=== PATIENT | male | born 1950 | race Caucasian/White ===

== ENCOUNTER 2016-10-16 11:31 | Outpatient (CLI) | payer MEDICARE, OTHER, SELFPAY ==
[2016-10-16 11:54] LABS: #Eosinphils 0.2 thou/uL (0.0-0.7); #Lymphocytes 1.6 thou/uL (1.20-3.40); #Monocytes 0.6 thou/uL (0.11-0.59); #Neutrophils 3.6 thou/uL (1.40-6.50); %Basophils 0.8 % (0.0-1.0); %Eosinophils 2.7 % (0.0-10.0); %Lymphocytes 26.1 % (21.0-51.0); %Monocytes 10.6 % (0.0-10.0); %Neutrophils 59.9 % (42.0-75.0); Hemoglobin 11.5 g/dL (14.0-18.0); Mean Corpuscular HGB CONC 34.6 g/dL (32.0-36.0); Mean Corpuscular Hemoglobin 32.1 pg (27.0-31.0); Mean Corpuscular Volume 92.9 fl (80.0-94.0); Mean Platelet Volume 6.3 fL (7.4-10.4); Platelet Count 375 thou/uL (130-400); RBC Distribution Width 12.2 % (11.5-14.5); Red Blood Cell (RBC) Count 3.57 mill/uL (4.70-6.10); White Blood Cell (WBC) Count 5.9 thou/uL (4.8-10.8)
[2016-10-16 11:58] LABS: Hemoglobin A1c 5.3 % (4.0-6.0)
[2016-10-16 12:11] LABS: ALT (SGPT) Less than 6 U/L (0-55); AST (SGOT) 13 U/L (5-34); Albumin 4.1 g/dL (3.4-4.8); Alkaline Phosphatase 100 U/L (40-150); Anion Gap 12 mmol/L (10-20); BUN (Urea Nitrogen) 9 mg/dL (8.4-25.7); Bilirubin, Total 0.3 mg/dL (0.2-1.2); Calc. Creatinine Clearance 0 mL/min (70-130); Calcium 9.1 mg/dL (7.8-10.44); Carbon Dioxide 26 mmol/L (23-31); Cardiac Risk 1.8 (Less than 4.5); Chloride 94 mmol/L (98-107); Cholesterol 100 mg/dL (< 200 Desired); Estimated GFR-MDRD 88; Globulin 2.5 g/dL (2.4-3.5); Glucose 113 mg/dL (80-115); HDL Cholesterol 56 mg/dL (>60 Neg Risk); LDL Cholesterol, Calculated 38 mg/dL; Potassium 3.9 mmol/L (3.5-5.1); Protein, Total 6.6 g/dL (5.8-8.1); Sodium 128 mmol/L (136-145); Triglycerides 31 mg/dL (Less than 150)
== END 2016-10-16 11:32 ==
LOC: MADLABBHPM 11:31
PROVIDERS: ATTEND Family Medicine
DX: E87.1 Hypo-osmolality and hyponatremia (principal); N40.0 Benign prostatic hyperplasia without lower urinary tract symptoms; I10 Essential (primary) hypertension
CPT/HCPCS: 36415; 80053; 80061; 83036; 84443; 85025

== ENCOUNTER 2018-01-07 09:49 | Outpatient (CLI) | payer MEDICARE ==
[2018-01-07 11:05] LABS: #Basophils 0.1 thou/uL (0.0-0.2); #Eosinphils 0.1 thou/uL (0.0-0.7); #Lymphocytes 1.2 thou/uL (1.20-3.40); #Monocytes 0.7 thou/uL (0.11-0.59); #Neutrophils 4.4 thou/uL (1.40-6.50); %Basophils 1.3 % (0.0-1.0); %Eosinophils 0.9 % (0.0-10.0); %Lymphocytes 18.8 % (21.0-51.0); Mean Corpuscular HGB CONC 35.2 g/dL (32.0-36.0); Mean Corpuscular Hemoglobin 30.5 pg (27.0-31.0); Mean Corpuscular Volume 86.4 fl (80.0-94.0); Mean Platelet Volume 6.1 fL (7.4-10.4); Platelet Count 324 thou/uL (130-400); White Blood Cell (WBC) Count 6.5 thou/uL (4.8-10.8)
--- NOTE | 2018-01-07 11:46 | RAD ---
2 VIEWS CHEST; Date: 01/07/18 HISTORY: Hyponatremia. COMPARISON: None. FINDINGS: Slight elongation of the aorta. Normal cardiac silhouette. Pulmonary vessels and hilum are normal. Co stophrenic angles are clear. Hyperinflation with possible infiltrate in the left lower lobe. No pneum othorax or osseous abnormalities. IMPRESSION: Left lower lobe infiltrate. Continued surveillance. POS: [facility]
[2018-01-07 17:32] LABS: Iron 32 ug/dL (65-175); Iron Binding Capacity, Total 301 mcg/dL (261-462)
[2018-01-07 17:36] LABS: Osmolality, Serum 248 mOsm/kg (280-295)
[2018-01-07 17:52] LABS: Ferritin 180.53 ng/mL (22-322)
== END 2018-01-07 09:50 | disposition home or self-care (01) ==
LOC: MADLABBHPM 09:49
PROVIDERS: ATTEND Family Medicine
DX: R79.89 Other specified abnormal findings of blood chemistry (principal); E87.1 Hypo-osmolality and hyponatremia; D64.9 Anemia, unspecified; R91.8 Other nonspecific abnormal finding of lung field
CPT/HCPCS: 36415; 71046; 82024; 82533; 82607; 82728; 83540; 83550; 83930; 83935; 85025

== ENCOUNTER 2019-03-18 10:10 | Outpatient (CLI) | payer MEDICARE ==
--- NOTE | 2019-03-18 10:38 | RAD ---
EXAM: 3 views of the right shoulder HISTORY: Shoulder pain COMPARISON: None FINDINGS: There is no evidence of acute fracture or dislocation. Severe glenohumeral degenerative jose nges are present. No soft tissue swelling is seen. The visualized thorax is unremarkable. IMPRESSION: Severe right shoulder osteoarthritis
--- NOTE | 2019-03-18 10:40 | RAD ---
EXAM: 2 views of the left hip HISTORY: Left hip pain COMPARISON: 11/29/2011 FINDINGS: 2 views of the left hip shows no evidence of acute fracture or dislocation. The patient is status post left hip arthroplasty. Acetabular portion of the prosthesis is too vertically oriented. No lucency is seen surrounding the femoral portion of the prosthesis. IMPRESSION: Abnormal orientation of acetabular component of the left hip prosthesis.
[2019-03-18 11:19] LABS: ALT (SGPT) 8 U/L (8-55); AST (SGOT) 13 U/L (5-34); Albumin 4.3 g/dL (3.4-4.8); Alkaline Phosphatase 101 U/L (40-150); Anion Gap 14 mmol/L (10-20); BUN (Urea Nitrogen) 17 mg/dL (8.4-25.7); Bilirubin, Total 0.4 mg/dL (0.2-1.2); Calc. Creatinine Clearance 0 mL/min (70-130); Calcium 9.4 mg/dL (7.8-10.44); Carbon Dioxide 27 mmol/L (23-31); Chloride 91 mmol/L (98-107); Estimated GFR-MDRD 73; Globulin 2.8 g/dL (2.4-3.5); Glucose 88 mg/dL (80-115); Potassium 4.6 mmol/L (3.5-5.1); Protein, Total 7.1 g/dL (5.8-8.1); Sodium 127 mmol/L (136-145)
== END 2019-03-18 10:11 | disposition home or self-care (01) ==
LOC: MADLABBHPM 10:10
PROVIDERS: ATTEND Family Medicine
DX: M25.552 Pain in left hip (principal); M25.511 Pain in right shoulder; I10 Essential (primary) hypertension; E87.1 Hypo-osmolality and hyponatremia; Z96.662 Presence of left artificial ankle joint; M19.011 Primary osteoarthritis, right shoulder
CPT/HCPCS: 36415; 80053

== ENCOUNTER 2019-09-15 15:30 | Inpatient (IN) | payer MEDICARE ==
[2019-09-15] MEDS ORDERED: Acetaminophen 325 MG TAB PO PRN (17:11)
[2019-09-15] MEDS ORDERED: HYDROcodone/Acetaminophen 5/325 mg Tablet PO PRN (17:16)
[2019-09-15] MEDS: Famotidine 20 MG TAB PO SCH (21:03)
[2019-09-15] MEDS: Aspirin 81 mg Enteric Coated Tablet PO SCH (21:03)
[2019-09-15] MEDS: HYDROcodone/Acetaminophen 5/325 mg Tablet PO PRN (21:03)
--- NOTE | 2019-09-16 02:52 | HP ---
PRIMARY CARE PHYSICIAN/ADMITTING PHYSICIAN: Dr. Tip Bauman. REASON FOR ADMISSION: For skilled rehabilitation at [facility] Bed status post septic arthritis, status post failed total hip arthroplasty and revision. HISTORY OF PRESENT ILLNESS: Mr. Kevyn Fritz is a very pleasant 69-year-old male with a history of chronic smoking and alcohol abuse in the past and left hip replacement many years ago. The patient developed worsening pain and was diagnosed with loosening and failure of the left hip arthroplasty. Dr. Lomeli admitted the patient for a revision which was done on September 10, 2019, and there was gross purulence discharge within the capsule under pressure and cultures were submitted. There was full capsulectomy, synovectomy, and the femoral head was removed. The acetabular cup was removed. The patient was evaluated by Infectious Disease specialist, Dr. Schuster, due to septic arthritis and he recommended the patient to be started on IV Rocephin and vancomycin pending cultures. Patient's cultures were negative and per ID specialist, Dr. Schuster, recommended the patient be placed on IV Rocephin for 6 weeks and then transitioned to doxycycline thereafter. During hospitalizations, patient was noted to have hyponatremia, which was chronic for him and his discharge sodium was 126, admission sodium was 123. He was recommended to be on 1200ml fluid restriction and suspected this to be due to SIADH. Due to septic arthritis and physical deconditioning, the decision was made to transfer the patient to [facility] for skilled rehabilitation prior to returning to his home as he lives by himself. Upon evaluation of the patient today, he was very happy to be in facility. He had his sister, brother, and friend visiting. He was excited to start physical therapy and be discharged home within next a week or two. The patient states [place] and lidocaine patch used for pain control was adequate. He denies any chest pain, nausea, or vomiting. He states he has not had any bowel movement since after surgery, but he is passing gas. PAST MEDICAL HISTORY: Hyponatremia, hypertension, skin cancer of the lip, alcohol dependency syndrome, SIADH, and left hip replacement. ALLERGIES: NONE. FAMILY HISTORY: Noncontributory. SOCIAL HISTORY: Patient lives in [place], current smoker. Quit drinking alcohol about 2 months prior to admission. CURRENT MEDICATIONS: Aspirin 81 mg b.i.d., Rocephin 2 g daily, lidocaine patch 5%, lisinopril 10 mg daily, [place] 5/325 one tab for mild pain and 2 tabs for moderate to severe pain. REVIEW OF SYSTEMS: All systems reviewed and found to be negative except for the pertinent mentioned in H and P. PHYSICAL EXAMINATION: VITAL SIGNS: Temperature 98.1, pulse 67, respirations 16, O2 saturation 100% on room air, blood pressure 113/70. GENERAL: The patient is alert, awake, oriented, sitting up in bed, in no apparent distress. CVS: S1 and S2 heard, regular. RESPIRATIONS: Clear to auscultation bilaterally. HEENT: Eyes, no scleral icterus. No conjunctival pallor. ENT: Moist oral mucous membranes. No oropharyngeal erythema, lesions, or exudate. NECK: Supple, nontender. Trachea is midline. No JVD. NEUROLOGICAL: Cranial nerves 2 through 12 intact. MUSCULOSKELETAL: Left lateral hip with healing surgical incision. Dressing intact. No drainage noted. SKIN: No rashes. PSYCHIATRIC: Normal mood and affect. The patient is oriented to person, place , and time. ASSESSMENT: 1. Septic arthritis. 2. Status post failed left total hip arthroplasty, status post revision. 3. Acute anemia. 4. Hyponatremia, chronic. 5. Hypertension. 6. Coronary artery disease. 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 We will admit the patient to the swing bed. We will consult Physical Therapy to help with gait strengthening and ambulation. We will consult Occupational Therapy to help with activities of daily living. We will place the patient on aspirin b.i.d. for DVT prophylaxis. We will place the patient on Protonix for GI prophylaxis. We will hold hydrochlorothiazide and place patient on lisinopril 10 mg daily for blood pressure control. We will place the patient on a 1200 fluid restriction due to hyponatremia. We will place patient on stool softeners for his constipation. We will continue IV antibiotic with Rocephin x6 weeks per ID specialist, Dr. Schuster, and transition to doxycycline afterwards. The patient to follow up with Dr. Lomeli as discussed and follow up with ID specialist once IV antibiotic is completed. ESTIMATED LENGTH OF STAY: 2 to 6 weeks. CODE STATUS: The patient is full code. Job ID: [id number] [facility]
[2019-09-16] MEDS: Aspirin 81 mg Enteric Coated Tablet PO SCH ×2 (08:09→20:38)
[2019-09-16] MEDS: Lidocaine 5% Patch TD SCH (08:09)
[2019-09-16] MEDS: HYDROcodone/Acetaminophen 5/325 mg Tablet PO PRN ×3 (08:10→19:26)
[2019-09-16] MEDS: Famotidine 20 MG TAB PO SCH ×2 (08:10→20:38)
[2019-09-16] MEDS: Lisinopril 10 MG TAB PO SCH (08:12)
[2019-09-16] MEDS ORDERED: cefTRIAXone\\ROCEPHIN 2 GM VIAL IVPB SCH (16:00)
[2019-09-16] MEDS: cefTRIAXone\\ROCEPHIN 2 GM in Sodium Chloride 0.9% 100 ML IVPB SCH (16:11)
[2019-09-16] MEDS: Lidocaine Patch Removal 1 EACH TOP SCH (20:39)
[2019-09-17] MEDS ORDERED: HYDROcodone/Acetaminophen 5/325 mg Tablet PO PRN (02:15)
[2019-09-17] MEDS: HYDROcodone/Acetaminophen 5/325 mg Tablet PO PRN ×4 (03:30→17:36)
[2019-09-17] MEDS: Lisinopril 10 MG TAB PO SCH (08:22)
[2019-09-17] MEDS: Aspirin 81 mg Enteric Coated Tablet PO SCH ×2 (08:22→20:52)
[2019-09-17] MEDS: Famotidine 20 MG TAB PO SCH ×2 (08:22→20:53)
[2019-09-17] MEDS: Lidocaine 5% Patch TD SCH (08:23)
[2019-09-17] MEDS: cefTRIAXone\\ROCEPHIN 2 GM in Sodium Chloride 0.9% 100 ML IVPB SCH (16:53)
[2019-09-17] MEDS: Lidocaine Patch Removal 1 EACH TOP SCH (20:53)
[2019-09-18] MEDS: HYDROcodone/Acetaminophen 5/325 mg Tablet PO PRN ×5 (00:49→20:52)
[2019-09-18] MEDS: Aspirin 81 mg Enteric Coated Tablet PO SCH ×2 (08:59→20:52)
[2019-09-18] MEDS: Lisinopril 10 MG TAB PO SCH (08:59)
[2019-09-18] MEDS: Lidocaine 5% Patch TD SCH (09:00)
[2019-09-18] MEDS: Famotidine 20 MG TAB PO SCH ×2 (09:00→20:52)
[2019-09-18 13:42] LABS: Anion Gap 15 mmol/L (10-20); BUN (Urea Nitrogen) 20 mg/dL (8.4-25.7); Calc. Creatinine Clearance 82 mL/min (70-130); Calcium 8.9 mg/dL (7.8-10.44); Carbon Dioxide 24 mmol/L (23-31); Chloride 95 mmol/L (98-107); Estimated GFR-MDRD 90; Glucose 99 mg/dL (80-115); Potassium 4.6 mmol/L (3.5-5.1); Sodium 129 mmol/L (136-145)
[2019-09-18] MEDS: cefTRIAXone\\ROCEPHIN 2 GM in Sodium Chloride 0.9% 100 ML IVPB SCH (15:45)
[2019-09-18] MEDS: Lidocaine Patch Removal 1 EACH TOP SCH (20:54)
[2019-09-19] MEDS: HYDROcodone/Acetaminophen 5/325 mg Tablet PO PRN ×5 (03:47→23:11)
[2019-09-19] MEDS: Lidocaine 5% Patch TD SCH (09:07)
[2019-09-19] MEDS: Famotidine 20 MG TAB PO SCH ×2 (09:07→20:15)
[2019-09-19] MEDS: Aspirin 81 mg Enteric Coated Tablet PO SCH ×2 (09:07→20:14)
[2019-09-19] MEDS: Lisinopril 10 MG TAB PO SCH (09:07)
[2019-09-19] MEDS: cefTRIAXone\\ROCEPHIN 2 GM in Sodium Chloride 0.9% 100 ML IVPB SCH (16:03)
[2019-09-19] MEDS: Lidocaine Patch Removal 1 EACH TOP SCH (20:17)
[2019-09-20] MEDS: HYDROcodone/Acetaminophen 5/325 mg Tablet PO PRN ×4 (03:58→19:19)
[2019-09-20] MEDS: Lidocaine 5% Patch TD SCH (09:36)
[2019-09-20] MEDS: Aspirin 81 mg Enteric Coated Tablet PO SCH ×2 (09:37→20:52)
[2019-09-20] MEDS: Lisinopril 10 MG TAB PO SCH (09:37)
[2019-09-20] MEDS: Famotidine 20 MG TAB PO SCH ×2 (09:37→20:52)
[2019-09-20] MEDS: Ondansetron ODT 4 MG TAB PO PRN (13:30)
[2019-09-20] MEDS: cefTRIAXone\\ROCEPHIN 2 GM in Sodium Chloride 0.9% 100 ML IVPB SCH (16:00)
[2019-09-20] MEDS: Lidocaine Patch Removal 1 EACH TOP SCH (20:53)
[2019-09-21] MEDS ORDERED: HYDROcodone/Acetaminophen 5/325 mg Tablet ONE (01:40)
[2019-09-21] MEDS: HYDROcodone/Acetaminophen 5/325 mg Tablet PO PRN ×4 (01:45→20:37)
[2019-09-21] MEDS: Aspirin 81 mg Enteric Coated Tablet PO SCH ×2 (08:20→20:37)
[2019-09-21] MEDS: Lisinopril 10 MG TAB PO SCH (08:20)
[2019-09-21] MEDS: Famotidine 20 MG TAB PO SCH ×2 (08:20→20:37)
[2019-09-21] MEDS: Lidocaine 5% Patch TD SCH (08:20)
[2019-09-21] MEDS: cefTRIAXone\\ROCEPHIN 2 GM in Sodium Chloride 0.9% 100 ML IVPB SCH (16:25)
[2019-09-21] MEDS: Lidocaine Patch Removal 1 EACH TOP SCH (20:37)
[2019-09-22] MEDS: HYDROcodone/Acetaminophen 5/325 mg Tablet PO PRN ×2 (03:22→08:50)
[2019-09-22] MEDS: Aspirin 81 mg Enteric Coated Tablet PO SCH ×2 (08:45→21:08)
[2019-09-22] MEDS: Lidocaine 5% Patch TD SCH (08:45)
[2019-09-22] MEDS: Famotidine 20 MG TAB PO SCH ×2 (08:45→21:08)
[2019-09-22] MEDS: Ondansetron ODT 4 MG TAB PO PRN (08:50)
[2019-09-22] MEDS: Senokot S 8.6-50 MG TAB PO PRN ×2 (08:50→22:02)
[2019-09-22] MEDS: Lisinopril 10 MG TAB PO SCH (08:50)
[2019-09-22] MEDS: cefTRIAXone\\ROCEPHIN 2 GM in Sodium Chloride 0.9% 100 ML IVPB SCH (16:30)
[2019-09-22] MEDS ORDERED: Bisacodyl 10 MG SUPP PR PRN (16:43)
[2019-09-22] MEDS: Lidocaine Patch Removal 1 EACH TOP SCH (21:09)
[2019-09-23] MEDS: Senokot S 8.6-50 MG TAB PO PRN (08:56)
[2019-09-23] MEDS: Famotidine 20 MG TAB PO SCH ×2 (08:57→20:46)
[2019-09-23] MEDS: Lidocaine 5% Patch TD SCH (08:57)
[2019-09-23] MEDS: Aspirin 81 mg Enteric Coated Tablet PO SCH ×2 (08:57→20:46)
[2019-09-23] MEDS: Lisinopril 10 MG TAB PO SCH (08:57)
[2019-09-23] MEDS: cefTRIAXone\\ROCEPHIN 2 GM in Sodium Chloride 0.9% 100 ML IVPB SCH (16:36)
[2019-09-23] MEDS: Lidocaine Patch Removal 1 EACH TOP SCH (20:46)
[2019-09-24] MEDS: Lisinopril 10 MG TAB PO SCH (08:58)
[2019-09-24] MEDS: Aspirin 81 mg Enteric Coated Tablet PO SCH ×2 (08:58→21:09)
[2019-09-24] MEDS: Lidocaine 5% Patch TD SCH (08:58)
[2019-09-24] MEDS: Famotidine 20 MG TAB PO SCH ×2 (08:59→21:09)
[2019-09-24] MEDS: cefTRIAXone\\ROCEPHIN 2 GM in Sodium Chloride 0.9% 100 ML IVPB SCH (16:50)
[2019-09-24] MEDS: Senokot S 8.6-50 MG TAB PO PRN (21:09)
[2019-09-24] MEDS: Lidocaine Patch Removal 1 EACH TOP SCH (21:12)
[2019-09-25 05:34] LABS: #Basophils 0.1 thou/uL (0.0-0.2); #Eosinphils 0.2 thou/uL (0.0-0.7); #Neutrophils 5.9 thou/uL (1.40-6.50); %Eosinophils 2.2 % (0.0-10.0); %Lymphocytes 21.6 % (21.0-51.0); %Monocytes 10.6 % (0.0-10.0); %Neutrophils 64.6 % (42.0-75.0); Hemoglobin 10.1 g/dL (14.0-18.0); Mean Corpuscular HGB CONC 32.8 g/dL (32.0-36.0); Mean Corpuscular Hemoglobin 29.6 pg (27.0-31.0); Mean Corpuscular Volume 90.3 fL (78.0-98.0); Mean Platelet Volume 6.2 fL (7.4-10.4); Platelet Count 571 thou/uL (130-400); RBC Distribution Width 12.5 % (11.5-14.5); Red Blood Cell (RBC) Count 3.41 mill/uL (4.70-6.10); White Blood Cell (WBC) Count 9.2 thou/uL (4.8-10.8)
[2019-09-25 05:52] LABS: Anion Gap 13 mmol/L (10-20); BUN (Urea Nitrogen) 18 mg/dL (8.4-25.7); Calc. Creatinine Clearance 88 mL/min (70-130); Carbon Dioxide 25 mmol/L (23-31); Chloride 96 mmol/L (98-107); Estimated GFR-MDRD Greater than 90; Glucose 90 mg/dL (80-115); Potassium 4.3 mmol/L (3.5-5.1); Sodium 130 mmol/L (136-145)
[2019-09-25] MEDS: Famotidine 20 MG TAB PO SCH ×2 (09:25→20:04)
[2019-09-25] MEDS: Lidocaine 5% Patch TD SCH (09:25)
[2019-09-25] MEDS: Aspirin 81 mg Enteric Coated Tablet PO SCH ×2 (09:25→20:04)
[2019-09-25] MEDS: Lisinopril 10 MG TAB PO SCH (09:25)
[2019-09-25] MEDS: cefTRIAXone\\ROCEPHIN 2 GM in Sodium Chloride 0.9% 100 ML IVPB SCH (16:33)
[2019-09-25] MEDS: Lidocaine Patch Removal 1 EACH TOP SCH (20:06)
[2019-09-25] MEDS: HYDROcodone/Acetaminophen 5/325 mg Tablet PO PRN (22:20)
[2019-09-26] MEDS: Lisinopril 10 MG TAB PO SCH (08:40)
[2019-09-26] MEDS: Aspirin 81 mg Enteric Coated Tablet PO SCH ×2 (08:41→21:02)
[2019-09-26] MEDS: Lidocaine 5% Patch TD SCH (08:41)
[2019-09-26] MEDS: Famotidine 20 MG TAB PO SCH ×2 (08:43→21:02)
[2019-09-26] MEDS: cefTRIAXone\\ROCEPHIN 2 GM in Sodium Chloride 0.9% 100 ML IVPB SCH (16:50)
[2019-09-26] MEDS: Lidocaine Patch Removal 1 EACH TOP SCH (21:02)
[2019-09-27] MEDS: Lidocaine 5% Patch TD SCH (08:20)
[2019-09-27] MEDS: Famotidine 20 MG TAB PO SCH ×2 (08:20→21:26)
[2019-09-27] MEDS: Lisinopril 10 MG TAB PO SCH (08:20)
[2019-09-27] MEDS: Aspirin 81 mg Enteric Coated Tablet PO SCH ×2 (08:20→21:26)
[2019-09-27] MEDS: cefTRIAXone\\ROCEPHIN 2 GM in Sodium Chloride 0.9% 100 ML IVPB SCH (16:40)
[2019-09-27] MEDS: Lidocaine Patch Removal 1 EACH TOP SCH (21:27)
[2019-09-27] MEDS: HYDROcodone/Acetaminophen 5/325 mg Tablet PO PRN (21:34)
[2019-09-28] MEDS: Aspirin 81 mg Enteric Coated Tablet PO SCH ×2 (10:33→20:07)
[2019-09-28] MEDS: Lisinopril 10 MG TAB PO SCH (10:33)
[2019-09-28] MEDS: Famotidine 20 MG TAB PO SCH ×2 (10:33→20:07)
[2019-09-28] MEDS: Lidocaine 5% Patch TD SCH (10:33)
[2019-09-28] MEDS: cefTRIAXone\\ROCEPHIN 2 GM in Sodium Chloride 0.9% 100 ML IVPB SCH (16:03)
[2019-09-28] MEDS: HYDROcodone/Acetaminophen 5/325 mg Tablet PO PRN (20:07)
[2019-09-28] MEDS: Lidocaine Patch Removal 1 EACH TOP SCH (20:42)
[2019-09-29] MEDS: Aspirin 81 mg Enteric Coated Tablet PO SCH ×2 (08:35→21:32)
[2019-09-29] MEDS: Famotidine 20 MG TAB PO SCH ×2 (08:35→21:32)
[2019-09-29] MEDS: Lidocaine 5% Patch TD SCH (08:35)
[2019-09-29] MEDS: Lisinopril 10 MG TAB PO SCH (08:35)
[2019-09-29] MEDS: cefTRIAXone\\ROCEPHIN 2 GM in Sodium Chloride 0.9% 100 ML IVPB SCH (16:26)
[2019-09-29] MEDS: HYDROcodone/Acetaminophen 5/325 mg Tablet PO PRN (21:32)
[2019-09-29] MEDS: Lidocaine Patch Removal 1 EACH TOP SCH (21:34)
[2019-09-30 06:54] VITALS: BP 114/57; TEMP 97.8
[2019-09-30] MEDS: Famotidine 20 MG TAB PO SCH (08:04)
[2019-09-30] MEDS: Lisinopril 10 MG TAB PO SCH (08:04)
[2019-09-30] MEDS: Aspirin 81 mg Enteric Coated Tablet PO SCH (08:04)
[2019-09-30] MEDS: Lidocaine 5% Patch TD SCH (08:05)
[2019-09-30 12:31] LABS: #Basophils 0.1 thou/uL (0.0-0.2); #Eosinphils 0.2 thou/uL (0.0-0.7); #Lymphocytes 1.9 thou/uL (1.20-3.40); #Monocytes 0.7 thou/uL (0.11-0.59); #Neutrophils 6.5 thou/uL (1.40-6.50); %Basophils 0.8 % (0.0-1.0); %Eosinophils 1.7 % (0.0-10.0); %Lymphocytes 19.9 % (21.0-51.0); %Monocytes 7.8 % (0.0-10.0); %Neutrophils 69.8 % (42.0-75.0); Mean Corpuscular HGB CONC 30.6 g/dL (32.0-36.0); Mean Corpuscular Hemoglobin 28.5 pg (27.0-31.0); Mean Corpuscular Volume 93.1 fL (78.0-98.0); Mean Platelet Volume 6.8 fL (7.4-10.4); Platelet Count 574 thou/uL (130-400); RBC Distribution Width 12.5 % (11.5-14.5); Red Blood Cell (RBC) Count 3.86 mill/uL (4.70-6.10); White Blood Cell (WBC) Count 9.3 thou/uL (4.8-10.8)
[2019-09-30 12:43] LABS: Anion Gap 17 mmol/L (10-20); BUN (Urea Nitrogen) 18 mg/dL (8.4-25.7); Calc. Creatinine Clearance 76 mL/min (70-130); Calcium 9.5 mg/dL (7.8-10.44); Carbon Dioxide 24 mmol/L (23-31); Chloride 93 mmol/L (98-107); Estimated GFR-MDRD 82; Glucose 135 mg/dL (80-115); Potassium 4.7 mmol/L (3.5-5.1); Sodium 129 mmol/L (136-145)
[2019-09-30] MEDS: cefTRIAXone\\ROCEPHIN 2 GM in Sodium Chloride 0.9% 100 ML IVPB SCH (14:06)
--- NOTE | 2019-10-01 05:21 | DIS ---
DATE OF ADMISSION: 09/15/2019 DATE OF DISCHARGE: 09/30/2019 ADMITTING AND DISCHARGING PHYSICIAN: Tip Bauman MD DISCHARGE DISPOSITION: Back to home with family. DISCHARGE MEDICATIONS: 1. [place] 5/325 one tab q.6h p.r.n. pain. 2. Aspirin 81 mg b.i.d. 3. Rocephin 2 g and sodium chloride until October 23, 2019. 4. Lidocaine patch one patch 15 daily. 5. Lisinopril 10 mg daily. DISCHARGE INSTRUCTIONS: [facility] to resume physical therapy and assist patient with IV infusions until October 23, 2019. The patient is to follow up with primary care physician, Dr. Bauman on October 26, 2019, at 10:00 a.m. Follow up with Dr. Schuster on October 22, 2019. Follow up with orthopedic surgeon, Dr. Lomeli on November 11, 2019. DISCHARGE DIAGNOSES: 1. Septic arthritis. 2. Revision of left hip arthroplasty. 3. Chronic hyponatremia. 4. Acute anemia. 5. Hypertension. 6. Coronary artery disease. BRIEF HOSPITAL COURSE: Mr. Catrina Bagley is a 69-year-old male, who has a history of left hip replacement many years ago, alcohol abuse, and chronic smoking. The patient states he recently quit alcohol use in the beginning of August 2019. He developed worsening pain to the left hip and was seen by orthopedic surgeon, Dr. Lomeli, who admitted him for revision, and that was done in August 2019. During procedure, he was noted to have gross purulent discharge in the capsule, and the patient underwent capsulectomy, synovectomy, and femoral head was removed. Due to he was seen by ID specialist, Dr. Schuster for septic arthritis. He had cultures done and this came back negative. Dr. Schuster recommended six weeks course of IV Rocephin and then transitioned to doxycycline thereafter. Due to physical deconditioning of the patient and gait instability with termination clerk antibiotic, the patient was admitted to [facility] skilled rehabilitation. The patient was able to participate in physical therapy, and he tolerated this well. The patient does have history of chronic hyponatremia, and his sodium was monitored throughout hospitalization. He also has a history of chronic anemia, and he had a little bit of an acute on chronic anemia, which improved during hospitalization. The patient participated in physical therapy. He was able to follow up with orthopedic surgeon, Dr. Lomeli today September 30, 2019, and Dr. Lomeli cleared the patient to be discharge home with continuation of his IV antibiotic. The patient on day of discharge was able to ambulate with a walker with physical therapy, 1500 foot using a rolling walker, and passed physical therapy. The patient was making good progress. The patient was discharged home with family on 30 of September in a stable condition. He was getting a new rolling walker which was delivered to his room prior to discharge with [facility] was set up and they would help the patient with IV infusions. The patient was discharged home in a stable condition. His discharge vital signs temperature 97.8, pulse 64, respirations 16, O2 saturation 97% on room air, and blood pressure 114/57. Job ID: [id number]
== END 2019-09-30 16:55 | disposition home health service (06) | DRG 560 ==
LOC: MADMS 15:30
PROVIDERS: ADMIT Family Medicine; ATTEND Family Medicine
DX: T84.52XA Infection and inflammatory reaction due to internal left hip prosthesis, initial encounter (principal); E87.1 Hypo-osmolality and hyponatremia; I10 Essential (primary) hypertension; Z96.642 Presence of left artificial hip joint; Z79.82 Long term (current) use of aspirin; F17.200 Nicotine dependence, unspecified, uncomplicated; F10.20 Alcohol dependence, uncomplicated; I25.10 Atherosclerotic heart disease of native coronary artery without angina pectoris; K59.00 Constipation, unspecified; D64.9 Anemia, unspecified; Z85.819 Personal history of malignant neoplasm of unspecified site of lip, oral cavity, and pharynx
CPT/HCPCS: 36415; 80048; 85025; J0696; J3490; Q0162

== ENCOUNTER 2019-10-12 14:39 | Outpatient (CLI) | payer MEDICARE ==
[2019-10-12 14:52] LABS: #Basophils 0.1 thou/uL (0.0-0.2); #Eosinphils 0.2 thou/uL (0.0-0.7); #Lymphocytes 1.7 thou/uL (1.20-3.40); #Monocytes 0.7 thou/uL (0.11-0.59); #Neutrophils 4.9 thou/uL (1.40-6.50); %Basophils 1.1 % (0.0-1.0); %Eosinophils 2.4 % (0.0-10.0); %Lymphocytes 22.3 % (21.0-51.0); %Monocytes 9.8 % (0.0-10.0); %Neutrophils 64.5 % (42.0-75.0); Hemoglobin 11.4 g/dL (14.0-18.0); Mean Corpuscular HGB CONC 30.8 g/dL (32.0-36.0); Mean Corpuscular Hemoglobin 28.6 pg (27.0-31.0); Mean Corpuscular Volume 92.9 fL (78.0-98.0); Platelet Count 364 thou/uL (130-400); Red Blood Cell (RBC) Count 3.97 mill/uL (4.70-6.10); White Blood Cell (WBC) Count 7.6 thou/uL (4.8-10.8)
[2019-10-12 15:00] LABS: Anion Gap 16 mmol/L (10-20); BUN (Urea Nitrogen) 11 mg/dL (8.4-25.7); Calc. Creatinine Clearance 0 mL/min (70-130); Calcium 9.8 mg/dL (7.8-10.44); Carbon Dioxide 25 mmol/L (23-31); Chloride 96 mmol/L (98-107); Estimated GFR-MDRD 84; Glucose 89 mg/dL (80-115); Potassium 4.2 mmol/L (3.5-5.1); Sodium 133 mmol/L (136-145)
== END 2019-10-12 14:40 | disposition home or self-care (01) ==
LOC: MADLAB 14:39
PROVIDERS: ATTEND Family Medicine
DX: M00.80 Arthritis due to other bacteria, unspecified joint (principal); R50.9 Fever, unspecified
CPT/HCPCS: 80048; 85025

== ENCOUNTER 2019-10-19 13:53 | Outpatient (CLI) | payer MEDICARE ==
[2019-10-19 15:09] LABS: #Eosinphils 0.3 thou/uL (0.0-0.7); #Lymphocytes 2.5 thou/uL (1.20-3.40); #Monocytes 0.3 thou/uL (0.11-0.59); #Neutrophils 4.4 thou/uL (1.40-6.50); %Basophils 0.5 % (0.0-1.0); %Eosinophils 3.8 % (0.0-10.0); %Lymphocytes 33.4 % (21.0-51.0); %Monocytes 3.4 % (0.0-10.0); Mean Corpuscular HGB CONC 31.3 g/dL (32.0-36.0); Mean Corpuscular Hemoglobin 28.9 pg (27.0-31.0); Mean Corpuscular Volume 92.5 fL (78.0-98.0); Mean Platelet Volume 6.3 fL (7.4-10.4); Platelet Count 333 thou/uL (130-400); Red Blood Cell (RBC) Count 3.46 mill/uL (4.70-6.10); White Blood Cell (WBC) Count 7.5 thou/uL (4.8-10.8)
[2019-10-19 15:21] LABS: Anion Gap 14 mmol/L (10-20); BUN (Urea Nitrogen) 13 mg/dL (8.4-25.7); Calc. Creatinine Clearance 0 mL/min (70-130); Carbon Dioxide 26 mmol/L (23-31); Chloride 93 mmol/L (98-107); Estimated GFR-MDRD Greater than 90; Glucose 85 mg/dL (80-115); Sodium 128 mmol/L (136-145)
== END 2019-10-19 13:54 | disposition home or self-care (01) ==
LOC: MADLABBHPM 13:53
PROVIDERS: ATTEND Family Medicine
DX: T84.52XD Infection and inflammatory reaction due to internal left hip prosthesis, subsequent encounter (principal); T84.031D Mechanical loosening of internal left hip prosthetic joint, subsequent encounter; Z79.2 Long term (current) use of antibiotics
CPT/HCPCS: 80048; 85025

== ENCOUNTER 2021-02-26 00:40 | Emergency (ER) | payer MEDICARE ==
[2021-02-26 01:43] LABS: #Eosinphils 0.2 thou/uL (0.0-0.7); #Lymphocytes 2.3 thou/uL (1.20-3.40); #Monocytes 0.8 thou/uL (0.11-0.59); #Neutrophils 4.9 thou/uL (1.40-6.50); %Basophils 0.6 % (0.0-1.0); %Eosinophils 2.2 % (0.0-10.0); %Lymphocytes 28.4 % (21.0-51.0); %Monocytes 9.5 % (0.0-10.0); %Neutrophils 59.4 % (42.0-75.0); Hemoglobin 11.9 g/dL (14.0-18.0); Mean Corpuscular HGB CONC 32.3 g/dL (32.0-36.0); Mean Corpuscular Hemoglobin 30.2 pg (27.0-31.0); Mean Corpuscular Volume 93.7 fL (78.0-98.0); Mean Platelet Volume 6.9 fL (7.4-10.4); Platelet Count 273 thou/uL (130-400); RBC Distribution Width 12.7 % (11.5-14.5); Red Blood Cell (RBC) Count 3.92 mill/uL (4.70-6.10); White Blood Cell (WBC) Count 8.2 thou/uL (4.8-10.8)
[2021-02-26 02:01] LABS: ALT (SGPT) 10 U/L (8-55); AST (SGOT) 14 U/L (5-34); Albumin 4.1 g/dL (3.4-4.8); Alkaline Phosphatase 83 U/L (40-110); Anion Gap 13 mmol/L (10-20); BUN (Urea Nitrogen) 22 mg/dL (8.4-25.7); Bilirubin, Total 0.4 mg/dL (0.2-1.2); Calc. Creatinine Clearance 0 mL/min (70-130); Carbon Dioxide 25 mmol/L (23-31); Chloride 99 mmol/L (98-107); Globulin 2.9 g/dL (2.4-3.5); Glucose 92 mg/dL (80-115); Potassium 4.6 mmol/L (3.5-5.1); Sodium 132 mmol/L (136-145)
[2021-02-26] MEDS ORDERED: Cephalexin 500 MG CAP ONE (03:26)
[2021-02-26] MEDS ORDERED: Sulfameth/Trimethoprim DS 800-160mg TAB ONE (03:26)
== END 2021-02-26 03:34 | disposition home or self-care (01) ==
LOC: MADERS 00:40
DX: L03.115 Cellulitis of right lower limb (principal); M25.471 Effusion, right ankle; F17.210 Nicotine dependence, cigarettes, uncomplicated; I10 Essential (primary) hypertension; Z79.899 Other long term (current) drug therapy
CPT/HCPCS: 80053; 85025; 99283

== ENCOUNTER 2022-01-12 01:16 | Emergency (ER) | payer MEDICARE | END 2022-01-12 01:53 | disposition short-term general hospital (02) | LOC: MADERS 01:16 | DX: M79.661 Pain in right lower leg (principal); I10 Essential (primary) hypertension; F17.210 Nicotine dependence, cigarettes, uncomplicated; Z79.899 Other long term (current) drug therapy | CPT/HCPCS: 99284 ==

== ENCOUNTER 2022-06-18 13:05 | Emergency (ER) | payer MEDICARE | END 2022-06-18 13:47 | disposition left against medical advice (07) | LOC: MADERS 13:05 | DX: Z53.21 Procedure and treatment not carried out due to patient leaving prior to being seen by health care provider (principal) ==

== ENCOUNTER 2022-11-28 08:47 | Emergency (ER) | payer MEDICARE ==
[2022-11-28] MEDS ORDERED: Ipratropium/Albuterol 3 ML NEB ONE (09:23)
[2022-11-28] MEDS ORDERED: methylPREDNISolone Sod Succ/PF 125 MG/2 ML VIAL ONE (09:23)
[2022-11-28 09:37] LABS: #Basophils 0.1 thou/uL (0.0-0.2); #Eosinphils 0.1 thou/uL (0.0-0.7); #Lymphocytes 2.5 thou/uL (1.20-3.40); #Monocytes 0.9 thou/uL (0.11-0.59); #Neutrophils 4.6 thou/uL (1.40-6.50); %Basophils 1.5 % (0.0-1.0); %Eosinophils 1.5 % (0.0-10.0); %Lymphocytes 30.2 % (21.0-51.0); %Monocytes 11.3 % (0.0-10.0); %Neutrophils 55.6 % (42.0-75.0); Hemoglobin 14.2 g/dL (14.0-18.0); Mean Corpuscular HGB CONC 33.1 g/dL (32.0-36.0); Mean Corpuscular Hemoglobin 31.7 pg (27.0-31.0); Mean Platelet Volume 9.4 fL (7.4-10.4); Platelet Count 297 10x3/uL (130-400); RBC Distribution Width 12.9 % (11.5-14.5); Red Blood Cell (RBC) Count 4.49 mill/uL (4.70-6.10); White Blood Cell (WBC) Count 8.2 10x3/uL (4.8-10.8)
[2022-11-28 09:48] LABS: Prothrombin Time 13.9 sec (12.0-14.7)
[2022-11-28 09:49] LABS: PTT 27.6 sec (22.9-36.1)
[2022-11-28 09:55] LABS: ALT (SGPT) 8 U/L (8-55); AST (SGOT) 13 U/L (5-34); Albumin 4.4 g/dL (3.4-4.8); Alkaline Phosphatase 85 U/L (40-110); Anion Gap 17 mmol/L (10-20); BUN (Urea Nitrogen) 12 mg/dL (8.4-25.7); Bilirubin, Total 0.7 mg/dL (0.2-1.2); Calc. Creatinine Clearance 0 mL/min (70-130); Calcium 9.6 mg/dL (7.8-10.44); Carbon Dioxide 21 mmol/L (23-31); Chloride 101 mmol/L (98-107); Estimated GFR 67; Globulin 2.4 g/dL (2.4-3.5); Glucose 98 mg/dL (83-110); Potassium 4.7 mmol/L (3.5-5.1); Protein, Total 6.8 g/dL (5.8-8.1); Sodium 134 mmol/L (136-145)
== END 2022-11-28 10:20 | disposition home or self-care (01) ==
LOC: MADERS 08:47
DX: J44.1 Chronic obstructive pulmonary disease with (acute) exacerbation (principal); I10 Essential (primary) hypertension; F17.210 Nicotine dependence, cigarettes, uncomplicated
CPT/HCPCS: 71045; 80053; 83880; 84484; 85025; 85610; 85730; 93005; 94760; 96374; J2930; J7620

== ENCOUNTER 2024-08-02 10:08 | Emergency (ER) | payer MEDICARE ==
[2024-08-02] MEDS ORDERED: Fluorescein Opthalmic Strip ONE (10:53)
[2024-08-02] MEDS ORDERED: Tetracaine 0.5% PF 4 ML BOT ONE (10:53)
== END 2024-08-02 11:25 | disposition home or self-care (01) ==
LOC: MADERS 10:08
DX: L29.9 Pruritus, unspecified (principal); H53.8 Other visual disturbances; I10 Essential (primary) hypertension; F17.210 Nicotine dependence, cigarettes, uncomplicated; Z79.899 Other long term (current) drug therapy
CPT/HCPCS: 99283

== ENCOUNTER 2025-08-24 08:16 | Emergency (ER) | payer MEDICARE | END 2025-08-24 08:53 | disposition home or self-care (01) | LOC: MADERS 08:16 | DX: B34.9 Viral infection, unspecified (principal); I10 Essential (primary) hypertension; J44.9 Chronic obstructive pulmonary disease, unspecified; F17.210 Nicotine dependence, cigarettes, uncomplicated; Z71.6 Tobacco abuse counseling | CPT/HCPCS: 99283 ==